=== PATIENT | male | born 1995 | race Caucasian/White ===

== ENCOUNTER 2020-06-15 18:47 | Emergency (ER) | payer OTHER, SELFPAY ==
[~2020-06-15] VITALS: Ht 175.3 cm; Wt 83.1 kg
[2020-06-15 20:44] VITALS: Ht 175.3 cm; Wt 83.1 kg
[2020-06-16 00:13] VITALS: BP 116/70
== END 2020-06-16 00:13 | disposition home or self-care (01) ==
LOC: ED 18:47
DX: B34.9 Viral infection, unspecified (principal); R10.84 Generalized abdominal pain; Z20.828 Contact with and (suspected) exposure to other viral communicable diseases
CPT/HCPCS: Q0162; U0003